=== PATIENT | male | born 1960 | race Caucasian/White ===

== ENCOUNTER 2019-03-02 15:52 | Emergency (ER) | payer OTHER ==
--- NOTE | 2019-03-02 17:19 | EDM.PDOC ---
ED HPI GENERAL MEDICAL PROBLEM - General Chief Complaint: Lower Extremity Injury/Pain Stated Complaint: RIGHT ANKLE INJURY Time Seen by Provider: 03/02/19 16:11 Source of Information: Reports: Patient, RN Notes Reviewed History Limitations: Reports: No Limitations - History of Present Illness INITIAL COMMENTS - FREE TEXT/NARRATIVE: Patient is a 58-year-old male who presents to the ED for the evaluation of a right ankle injury. The patient notes that roughly 2 PM today him and his son were in [place] hiking a trail, when he slipped off of the path and fell. He believes that he rolled his ankle at that time. He thought he heard a crunch at that time and had immediate pain and swelling to the right lateral ankle. He states that he can bear weight however it is painful to do so. He did take 400 mg Motrin. He was wearing hiking boots at that time. At initial exam he does have an ice pack in place. He states he is not having pain anywhere that radiates up his leg into his knee or hip at all. He has full feeling on his toes and can wiggle his toes appropriately. Right Ankle Pain Score (Numeric/FACES): 7 - Related Data Allergies Allergy/AdvReac Type Severity Reaction Status Date / Time No Known Allergies Allergy Verified 03/02/19 16:03 Home Meds: Home Meds Levothyroxine Sodium [Synthroid] 75 mcg PO DAILY 03/02/19 [History] Past Medical History Musculoskeletal History: Reports: Other (See Below) Other Musculoskeletal History: right knee scope Endocrine/Metabolic History: Reports: Hypothyroidism Social & Family History - Tobacco Use Smoking Status *Q: Never Smoker - Caffeine Use Caffeine Use: Reports: Coffee, Tea - Recreational Drug Use Recreational Drug Use: No Review of Systems - Review of Systems Review Of Systems: See Below Constitutional: Reports: No Symptoms Eyes: Reports: No Symptoms Ears: Reports: No Symptoms Nose: Reports: No Symptoms Mouth/Throat: Reports: No Symptoms Respiratory: Reports: No Symptoms Cardiovascular: Reports: No Symptoms GI/Abdominal: Reports: No Symptoms Genitourinary: Reports: No Symptoms Musculoskeletal: Reports: Joint Pain (Right ankle pain), Joint Swelling (R ankle , laterally) Skin: Denies: Bruising Neurological: Reports: Difficulty Walking (limping gait d/t pain). Denies: Numbness, Tingling Psychiatric: Reports: No Symptoms ED EXAM, GENERAL - Physical Exam Exam: See Below Exam Limited By: No Limitations General Appearance: Alert, WD/WN, No Apparent Distress Respiratory/Chest: No Respiratory Distress, Lungs Clear, Normal Breath Sounds, No Accessory Muscle Use, Chest Non-Tender Cardiovascular: Normal Peripheral Pulses, Regular Rate, Rhythm, No Murmur Peripheral Pulses: 3+: Dorsalis Pedis (L), Dorsalis Pedis (R) Extremities: Joint Swelling (R lateral ankle), Limited Range of Motion (R ankle d/t pain). No: Increased Warmth Neurological: Alert, Oriented, Normal Cognition, No Motor/Sensory Deficits, Abnormal Gait (limping gait d/t pain.) Psychiatric: Normal Affect, Normal Mood Skin Exam: Warm, Dry, Intact, Normal Color, No Rash Course - Vital Signs Last Recorded V/S: Last Vital Signs Temp 98.7 F 03/02/19 16:01 Pulse 68 03/02/19 16:01 Resp 20 03/02/19 16:01 BP 117/76 03/02/19 16:01 Pulse Ox 97 03/02/19 16:01 - Orders/Labs/Meds Orders: Active Orders 24 hr Category Date Time Status Ankle Min 3V Rt [CR] Stat Exams 03/02/19 16:12 Taken - Re-Assessments/Exams Free Text/Narrative Re-Assessment/Exam: 03/02/19 17:17 Patient presents to the ED for the evaluation of a right ankle injury. An x- ray was obtained, and does not demonstrate any acute bony fractures or abnormalities at this time. All joint spaces are preserved and appeared to be within normal limits. Official radiology read is pending however. The patient states that the ibuprofen and ice does help some pain relief. This is likely just a really bad ankle sprain, and he will be advised on how to Daren wrap his ankle and give other general recommendations and be discharged home. 03/02/19 17:47 Patient is wanting to go home, I did tell him that I do not have the official radiology read, however it does not appear to be broken at this time. He is understanding of this. He was made aware that if something should change he will be called back to the ER for further management. He is okay with this. Departure - Departure Time of Disposition: 17:47 Disposition: Home, Self-Care 01 Condition: Fair Clinical Impression: Right ankle sprain Qualifiers: Encounter type: initial encounter Involved ligament of ankle: unspecified ligament Qualified Code(s): S93.401A - Sprain of unspecified ligament of right ankle, initial encounter - Discharge Information *PRESCRIPTION DRUG MONITORING PROGRAM REVIEWED*: No *COPY OF PRESCRIPTION DRUG MONITORING REPORT IN PATIENT ADY: No Instructions: Elastic Bandage and RICE Referrals: PCP,Not In Area [Primary Care Provider] - Forms: ED Department Discharge Additional Instructions: You have been evaluated in the ED for your right ankle pain. Your x-ray demonstrated no acute fracture or bony abnormality at this time. Please use ice as tolerated to the affected area. Please elevate the leg as tolerated. You may take tylenol 500 mg or ibuprofen 600mg q6 hrs for pain relief. Please do so until you have a tolerable level of pain with activity. Do not exceed 4000mg tylenol, Do not exceed 3200mg ibuprofen in a 24 hour time period. Please return to ED if your symptoms should change or worsen. - My Orders Last 24 Hours: My Active Orders 03/02/19 16:12 Ankle Min 3V Rt [CR] Stat - Assessment/Plan Last 24 Hours: My Active Orders 03/02/19 16:12 Ankle Min 3V Rt [CR] Stat
--- NOTE | 2019-03-03 07:28 | CR ---
Right ankle: Four views of the right ankle were obtained. Comparison: No previous study. Soft tissue swelling is noted. Ankle mortise is symmetric. No acute fracture, dislocation or other bony abnormality is seen. Impression: 1. Soft tissue swelling. No acute bony abnormality is appreciated. Diagnostic code #2
== END 2019-03-02 17:55 | disposition home or self-care (01) ==
LOC: JD.ED 15:52
DX: S93.401A Sprain of unspecified ligament of right ankle, initial encounter (principal); E03.9 Hypothyroidism, unspecified; Z79.899 Other long term (current) drug therapy; W01.0XXA Fall on same level from slipping, tripping and stumbling without subsequent striking against object, initial encounter
CPT/HCPCS: 73610-26-RT; 73610-RT; 99282; 99283-25